=== PATIENT | female | born 1990 | race Caucasian/White ===

== ENCOUNTER 2017-02-17 00:29 | Emergency (ER) | payer SELFPAY ==
[~2017-02-17] VITALS: Ht 167.6 cm; Wt 77.1 kg
[~2017-02-17 00:29] MED LIST: LOMOTIL 0.025 M1 TA1 PO; MOTRIN800 MG PO; PENICILLIN VK500 MG PO; TRAMADOL HCL50 MG PO; ZOFRAN ODT4 MG SL
[2017-02-17] MEDS ORDERED: PROVENTIL HFA6.7 GM DEVI (00:48)
[2017-02-17] MEDS ORDERED: ZITHROMAX250 MG PO (00:48)
[2017-02-17] MEDS ORDERED: MEDROL DOSEPAK4 MG PO (00:48)
== END 2017-02-17 01:18 | disposition home or self-care (01) ==
LOC: ED 00:29
DX: J40 Bronchitis, not specified as acute or chronic (principal); F17.200 Nicotine dependence, unspecified, uncomplicated